=== PATIENT | male | born 1960 | race African-American/Black ===

== ENCOUNTER 2021-10-06 20:35 | Emergency (ER) | payer OTHER ==
[~2021-10-06] VITALS: Ht 177.8 cm; Wt 75.0 kg
[2021-10-06 20:40] VITALS: BP 180/80
== END 2021-10-06 21:55 | disposition left against medical advice (07) ==
LOC: ER 20:35
DX: Z53.21 Procedure and treatment not carried out due to patient leaving prior to being seen by health care provider (principal)

== ENCOUNTER 2023-01-25 15:46 | Emergency (ER) | payer OTHER ==
[2023-01-25] MEDS ORDERED: HYDR59LO7 TP (23:32)
[2023-01-25] MEDS ORDERED: AMLO5TAB88 MT (23:32)
[2023-01-25] MEDS ORDERED: NAPR-681 PO (23:32)
== END 2023-01-25 17:05 | disposition left against medical advice (07) ==
LOC: ER 16:03
DX: Z53.21 Procedure and treatment not carried out due to patient leaving prior to being seen by health care provider (principal)

== ENCOUNTER 2023-01-25 17:41 | Emergency (ER) | payer MEDICAID, OTHER ==
[~2023-01-25] VITALS: Ht 175.3 cm; Wt 79.0 kg
[2023-01-25] MEDS ORDERED: IBUPROFEN 600MG TABLET PO STA (22:36)
[2023-01-25] MEDS ORDERED: AMLODIPINE 5MG TABLET PO ONE (22:45)
[2023-01-25 23:17] VITALS: BP 177/113
[2023-01-25] MEDS ORDERED: HYDR59LO7 TP (23:32)
[2023-01-25] MEDS ORDERED: AMLO5TAB88 MT (23:32)
[2023-01-25] MEDS ORDERED: NAPR-681 PO (23:32)
== END 2023-01-25 23:50 | disposition home or self-care (01) ==
LOC: ER 17:41
DX: I10 Essential (primary) hypertension (principal); L42 Pityriasis rosea; F10.21 Alcohol dependence, in remission; Z88.0 Allergy status to penicillin
CPT/HCPCS: 99283